=== PATIENT | male | born 1945 | race Caucasian/White ===

== ENCOUNTER 2016-09-17 07:26 | Day surgery (SDC) | payer MEDICARE, OTHER ==
[~2016-09-17 07:26] MED LIST: ALLOPURINOL100 MG PO; ALTACE 5MG CAPSU5 MG PO; ASPIRIN 81MG TA81 MG PO; BUPROPION HCL150 M2 PO; CELEXA20 MG PO; CEPHALEXIN500 M3 PO; LIPITOR40 MG PO; LOSARTAN POTASS50 MG PO; NYSTATIN SU60 ML/BOT PO; PREDNISONE 20MG20 MG PO
[2016-09-17 07:57] LABS: LYMPH # 1.6 K/mm3 (0.7-4.5); LYMPH % 19.4 % (10-50)
[2016-09-17 08:00] LABS: HEMOGLOBIN 13.7 g/dL (14.1-18.0)
[2016-09-17 08:01] LABS: BUN 20 mg/dL (7-18); GFR (ESTIMATED) 43 ML/MIN (>60)
--- NOTE | 2016-09-17 10:28 | RADIOLOGY REPORT PS360 ---
CARDIAC CATHETERIZATION DATE OF CATHETERIZATION:09/17/2016 9:56 AM PROCEDURES: 1. Left heart catheterization 2. Left ventriculogram 3. Selective coronary angiogram 4. Drug-eluting stent deployment to the distal dominant right coronary artery 5. Drug-eluting stent deployment to the distal large circumflex artery INDICATION FOR TEST: 1. Angina pectoris class IV 2. Abnormal Myoview 3. Coronary artery disease 4. Inability to uptitrate antianginal's due to blood pressure of 93/61 mmHg Informed consent was obtained prior to the procedure. COMPLICATIONS: None Clinical history: 71-year-old gentleman with known coronary artery disease and multivessel coronary artery disease with ongoing tobacco usage presented to the clinic in June 2015 at which time a stress test demonstrated an inferior wall defect as well as an apical defect and a partial anterior defect. Patient had normal ejection fraction and at the time was without angina therefore medical management continued. Earlier this month patient presented to the clinic with acceleration of angina therefore isosorbide mononitrate 30 mg daily was given. This did improve patient's angina however he continue to have class III and class IV angina. His blood pressure in the clinic was 93/61 therefore no additional antianginal medications could be given. Patient had RAD had an abnormal Myoview with status post multivessel coronary artery disease therefore there was no clinical reason to proceed with another stress test given the first one was early abnormal and patient failed medical management. Because of this he was taken to the [facility] with plans to revascularize his coronary arteries and in attempt to alleviate his angina. ESTIMATED BLOOD LOSS: Less than 10 ml. TECHNIQUE: One percent lidocaine was used to anesthetize the right groin. The right femoral artery was accessed via the Seldinger technique. A 4-[place] sheath was placed in the right femoral artery. The JL-4 and JR-4 catheter was also used to perform left heart catheterization left ventriculogram and selective coronary angiography. Because of the tortuous iliofemoral disease mini-exchange was performed. After the diagnostic angiogram 7000 units of heparin was administered intravenously with a ACT of 286 seconds. An attempt was made to load patient with Effient however only one pill could be swallowed due to patient's heavy sedation. A 4 [place] sheath was exchanged for a 6 [place] sheath and the JR4 catheter was used intubate the right coronary artery. A BMW wire was used to traverse the stenosis in the distal dominant right coronary artery and a 2.5 x 26 mm resolute stent was taken to 20 rubén creating an intraluminal diameter in excess of 3 mm reducing the 70% stenosis to 0% with excellent angiographic results. TERESA before and after the procedure remained at 3. After achieving excellent angiographic results the apparatus was removed over a mini-exchange approach and an EBU 3.75 guide catheter was placed in the left main artery. Given the significant tortuosity in the terminal obtuse marginal artery I felt an FFR procedure would not be appropriate given the rigidity and stiffness of the FFR wire and the likelihood of tearing or dissecting the distal vessel given its significant corkscrew tortuosity. Furthermore I felt this vessel was 70% angiographically and clinically felt it was most appropriate to perform revascularization of this vessel given the moderate amount of myocardium supplied by the obtuse marginal artery. A BMW wire was placed distally being careful not to dissect the vessel and a 2.5 x 8 mm resolute stent was deployed at 14 rubén reducing the 70% stenosis to 0%. TERESA flow remained at 3 before and after the procedure. At the end of the procedure the closing ACT was 191 seconds therefore an additional 3000 units of heparin was given intravenously. The apparatus was removed the groin was reprepped gloves were changed sheath was removed good hemostasis was achieved using Perclose device patient was transferred to the postop holding area in stable condition ANGIOGRAPHIC RESULTS: 1. The left main artery normal 2. The left anterior descending artery has proximal 30% stenosis mid vessel 30-40% nonflow limiting stenoses. 3. The circumflex artery is nondominant yet still a large vessel. Proximal to mid segment has 20% nonflow limiting stenoses. After a third obtuse marginal artery there is a focal 70% stenosis prior to the bifurcation of 2 additional obtuse marginal arteries. Most notably the fourth obtuse marginal artery supplies a moderate to large amount of myocardium and does reach the apex. 4. The right coronary artery is a dominant vessel and has proximal 30% stenoses followed by a mid vessel stent which is slightly under sized for the [place] vessel but is patent with no in-stent restenosis. Distally there are 30% stenoses and then along 70% stenosis prior to the distal bifurcation 5. The FERRERA ventriculogram reveals preserved ejection fraction estimated at 60% 6. The left ventricular end-diastolic pressure 10 mmHg IMPRESSION: 1. Class IV angina recalcitrant to standard medical therapy combined with drug-induced hypotension 2. Abnormal Myoview 3. Multivessel coronary artery disease 4. Successful stenting of the distal dominant right coronary artery severe disease reduced to 0% with 1 drug-eluting stent taken to high pressure inflation creating an intraluminal diameter and excess of 3 mm 5. Successful stenting of the distal circumflex artery supplying a moderate to large amount of myocardium reducing the severe focal stenosis to 0% with 1 drug-eluting stent 6. Normal ejection fraction 7. Normal left ventricular end-diastolic pressure PLAN: 1. Effient and aspirin 2. Discontinuation of isosorbide mononitrate due to revascularization and drug-induced hypotension 3. Tobacco cessation 4. Continue medical management
[2016-09-17 15:10] VITALS: BP 164/89
== END 2016-09-17 15:15 | disposition home or self-care (01) ==
LOC: CATHLAB 07:26
PROVIDERS: Internal Medicine
PROC: B2111ZZ Fluoroscopy of Multiple Coronary Arteries using Low Osmolar Contrast (ICD-10-PCS; 2016-09-17)
PROC: B2151ZZ Fluoroscopy of Left Heart using Low Osmolar Contrast (ICD-10-PCS; 2016-09-17)
PROC: 027135Z Dilation of Coronary Artery, Two Arteries with Two Drug-eluting Intraluminal Devices, Percutaneous Approach (ICD-10-PCS; 2016-09-17)
PROC: 4A023N7 Measurement of Cardiac Sampling and Pressure, Left Heart, Percutaneous Approach (ICD-10-PCS; principal; 2016-09-17 08:30)
DX: I25.119 Atherosclerotic heart disease of native coronary artery with unspecified angina pectoris (principal); Z72.0 Tobacco use; R94.39 Abnormal result of other cardiovascular function study; I45.2 Bifascicular block
CPT/HCPCS: C1725; C1760; C1769; C1876; C1894; J1644; Q9967

== ENCOUNTER → 2017-04-01 | Outpatient (CLI) | payer MEDICARE, OTHER ==
[~2017-04-01] MED LIST changes: +PLAVIX 75MG TAB75 MG PO; +VISTARIL25 MG PO
--- NOTE | 2017-04-01 14:54 | CARDIOVASCULAR REPORT ---
"Cerebrovascular Exam Indications: 433.10 Occlusion/stenosis of carotid artery without cerebral infarction. IMPRESSIONS 1. The bilateral vertebral arteries are patent with normal antegrade flow. 2. Study suggests less than 20% stenosis involving the right internal carotid artery. No change from the study of 06-Feb-2016. 3. Study suggests 50-69% stenosis involving the left internal carotid artery. No change from the study of 06-Feb-2016. History: Coronary artery disease. Risk factors: Current tobacco use. Hypertension. Hyperlipidemia. Carotid duplex study. Complete study and Doppler flow study including spectral analysis, color and pelayo scale imaging. Location: Vascular laboratory. Patient status: Outpatient. Tables: Arterial flow: + +--------+--------+ |Location |V sys |V ed | + +--------+--------+ |Right CCA - proximal|99.8cm/s|12.6cm/s| + +--------+--------+ |Right CCA - distal |59cm/s |20.4cm/s| + +--------+--------+ |Right ECA |77.1cm/s|--------| + +--------+--------+ |Right ICA - proximal|55.2cm/s|23.4cm/s| + +--------+--------+ |Right ICA - mid |71.2cm/s|30.4cm/s| + +--------+--------+ |Right ICA - distal |68.8cm/s|30cm/s | + +--------+--------+ |Right vertebral |46.7cm/s|--------| + +--------+--------+ |Left CCA - proximal |84cm/s |27.5cm/s| + +--------+--------+ |Left CCA - distal |74.2cm/s|25cm/s | + +--------+--------+ |Left ECA |105cm/s |--------| + +--------+--------+ |Left ICA - proximal |169cm/s |48.3cm/s| + +--------+--------+ |Left ICA - mid |127cm/s |46cm/s | + +--------+--------+ |Left ICA - distal |94.3cm/s|33.8cm/s| + +--------+--------+ |Left vertebral |40.9cm/s|--------| + +--------+--------+ Velocity ratios: + + + + + + | |Right, V sys|Right, V ed|Left, V sys|Left, V ed| + + + + + + |Max ICA/dist CCA|1.21 |1.49 |2.28 |1.93 | + + + + + + (Report amended ) Electronically signed by: Ubaldo Blum [id number]"
--- NOTE | 2017-04-02 17:16 | RADIOLOGY REPORT PS360 ---
PROCEDURE: 2-D M-mode and color Doppler study INDICATIONS FOR THE TEST: Chest pain COPD Heart Murmur Tobacco SmokingX Palpitations Fatigue Syncope Edema HypertensionXDiabetes Mellitus Rheumatic Fever SOBXDOEXObesity HyperlipidemiaX Family History HDX Additional History CAD STENTS X 3 PATIENT INFORMATION HEIGHT: 70 WEIGHT:154 GENDER: Male B/P:103/72 2-D/M-MODE INTERPRETATION: 2-D MEASUREMENTS OBSERVED VALUES IN CMS Right Ventricular Dimension (RVDd) 2.0 Interventricular Septum (Thickness)(IVsd) 1.4 Left Ventricular Internal Dimensions(LVIDd) 3.7 Left Ventricular Posterior Wall (Thickness)(LVPWd) 1.4 Aortic Root 3.1 Aortic Cusp Separation 2.0 Left Atrial Dimensions (LAD) 2.9 2D 1. Technically very difficult study because of the patient's factor and poor acoustic windows, endocardial surfaces are poorly visualized. Repeat study with Definity contrast is recommended. 2. The left atrium is mildly enlarged, left ventricle is normal size, there is mild concentric left ventricular hypertrophy, visually estimated ejection fraction is probably 40-45%, there appears to be hypokinesis involving the inferobasal, posterobasal and inferior wall. 3. The right-sided chambers appears to be normal size and contractility. 4. The aortic valve is minimally thickened and fibrosed. 5. The mitral and tricuspid valve leaflets are minimally thickened. 6. The pulmonic valve is poorly visualized. 7. No significant pericardial effusion noted. DOPPLER INTERROGATION: Doppler interrogation of the aortic, mitral and tricuspid valvular presence of mild mitral and tricuspid regurgitation, tricuspid regurgitant jet velocity is insufficient for calculation of the right ventricular systolic pressure, grade 1 diastolic dysfunction seen without tissue Doppler evidence of raised left atrial pressure. CONCLUSION: 1. Technically very difficult study because of the patient's factor and poor acoustic windows, endocardial surfaces are poorly visualized. Repeat study with Definity contrast is recommended. 2. Mildly enlarged left atrium, normal left ventricular size, mild concentric left ventricular hypertrophy, visually estimated ejection fraction of 40-45% with multiple segmental wall motion abnormality described above, grade 1 diastolic dysfunction seen without tissue Doppler evidence of raised left atrial pressure. 3. Mild mitral and tricuspid regurgitation. 4. No significant pericardial effusion noted.
== END ==
LOC: RT 12:51
DX: I25.10 Atherosclerotic heart disease of native coronary artery without angina pectoris (principal); I65.23 Occlusion and stenosis of bilateral carotid arteries; I11.9 Hypertensive heart disease without heart failure; E78.5 Hyperlipidemia, unspecified; G47.33 Obstructive sleep apnea (adult) (pediatric)

== ENCOUNTER → 2017-04-13 | Outpatient (CLI) | payer MEDICARE, OTHER ==
--- NOTE | 2017-04-14 05:52 | RADIOLOGY REPORT PS360 ---
PROCEDURE: Limited echocardiogram was performed with Definity contrast. 2D The left ventricle appears to be normal size, visually estimated ejection fraction approximately 50% with no obvious regional wall motion abnormality, despite Definity contrast endocardial border definition was poor. CONCLUSION: The left ventricle appears to be normal size, visually estimated ejection fraction approximately 50% with no obvious regional wall motion abnormality, despite Definity contrast endocardial border definition with poor.
== END ==
LOC: RT 10:48
DX: R06.02 Shortness of breath (principal)